=== PATIENT | female | born 1955 | race Caucasian/White ===

== ENCOUNTER 2017-09-16 13:00 | Emergency (ER) | payer BC, SELFPAY ==
[2017-09-16 13:12] VITALS: BP 205/90; PULSE 79; RESP 18; TEMP 36.8; O2SAT 98; BMI 25.7
--- NOTE | 2017-09-16 14:12 | DI.RAD.S_ITS ---
PROCEDURE: XR FOREARM RT 2V INDICATIONS: swelling TECHNIQUE: 2 views of the forearm were acquired. COMPARISON: None. FINDINGS: Bones: No fractures or dislocations. No suspicious bony lesions. Soft tissues: No suspicious soft tissue calcifications or masses. IMPRESSION: Source of swelling is not seen. Dictated by: Uriel Aparicio M.D. on 09/16/2017 at 14:46 Approved by: Uriel Aparicio M.D. on 09/16/2017 at 14:47
[2017-09-16 17:10] VITALS: BP 172/75; PULSE 78; RESP 16; O2SAT 98
--- NOTE | 2017-09-16 18:19 | PC.NURSE ---
right forearm with a bruise since 1229 today. denies any trauma. good rom. excellent pulses. denies numbness or tingling.
--- NOTE | 2017-09-16 18:22 | DI.US.S_ITS ---
PROCEDURE: US PERIPH VENOUS UP EXTREM RT INDICATIONS: pain, swelling TECHNIQUE: Real-time imaging, as well as color and pulse Doppler interrogation, was performed of the right upper extremity deep veins from the inferior neck to the antecubital fossa. COMPARISON: None. FINDINGS: The internal jugular vein, visualized portions of the subclavian vein, axillary, and brachial veins are free of intraluminal thrombus. Where physically possible, the veins are normally compressible. Color and pulse Doppler demonstrate normal intraluminal flow, with expected phasicity and pulsatility. Additional scanning of the cephalic and basilic veins of the superficial system demonstrate normal compressibility, without thrombus. IMPRESSION: No visualized deep venous thrombosis. Dictated by: Lucille Wright M.D. on 09/16/2017 at 20:28 Approved by: Lucille Wright M.D. on 09/16/2017 at 20:28
[2017-09-16 19:31] VITALS: BP 178/73; PULSE 67; RESP 16; TEMP 36.4; O2SAT 97
--- NOTE | 2017-09-17 03:58 | ED_ITS ---
HPI - Extremity Problem General Chief complaint: Extremity Problem,Nontraumatic Stated complaint: BLOOD CLOT RIGHT ARM Time Seen by Provider: 09/16/17 18:15 Source: patient and family Mode of arrival: ambulatory Limitations: no limitations History of Present Illness HPI Narrative: Patient presents to the emergency department with her in the chief complaint of a painful purple bump on her right forearm in the absence of any injury. She was told it was a blood clot and wanted to be evaluated as such. She denies any history of clotting disorders or prior clots. She denies any recent long distance travel. She denies fever or chills. She denies any chest pain or shortness of breath. MD Complaint: extremity pain Onset (ago): hour(s) Pain Consistency: constant Location: right Radiation: none Relieving factors: nothing Exacerbating factors: nothing Associated symptoms: denies other symptoms Related Data Allergies Allergy/AdvReac Type Severity Reaction Status Date / Time promethazine [From Phenergan] Allergy Vomiting Verified 09/16/17 13:22 Sulfa (Sulfonamide Allergy Vomiting Verified 09/16/17 13:22 Antibiotics) Review of Systems Review of Systems All systems reviewed & are unremarkable except as noted in HPI and below Constitutional Denies chills, Denies fever(s), Denies lethargy and Denies weakness Eyes Denies change in vision, Denies eye discharge, Denies irritation and Denies loss of vision ENT Ears, Nose, Mouth, and Throat: Denies change in voice, Denies neck pain and Denies sore throat Cardiovascular Denies chest pain, Denies irregular heart rhythm, Denies lightheadedness, Denies palpitations, Denies dyspnea, Denies dyspnea on exertion and Denies orthopnea Respiratory Denies cough, Denies dyspnea, Denies dyspnea on exertion and Denies wheezing Gastrointestinal Gastrointestinal: Denies abdominal pain, Denies change in bowel habits, Denies diarrhea, Denies nausea and Denies vomiting Genitourinary Denies hematuria, Denies flank pain, Denies urinary incontinence and Denies urinary urgency Musculoskeletal Reports joint swelling and Denies neck pain Integumentary/Breasts Denies pruritus, Denies erythema, Denies rash, Reports skin pain, Reports skin swelling and Denies wounds Neurologic Denies confusion, Denies loss of vision and Denies weakness Psychiatric Denies anxiety, Denies confusion, Denies depression, Denies homicidal ideation and Denies suicidal ideation Endocrine Denies palpitations Hematologic/Lymphatic Denies easy bruising Allergic/Immunologic Denies wheezing Exam Narrative Exam Narrative: 61-year-old female in no obvious distress, resting, reading her book Initial Vital Signs Initial Vital Signs: Vital Signs Temperature 98.2 F 09/16/17 13:12 Pulse Rate 79 09/16/17 13:12 Respiratory Rate 18 09/16/17 13:12 Blood Pressure 205/90 H 09/16/17 13:12 Pulse Oximetry 98 09/16/17 13:12 Const General: cooperative and well developed Nutritional Appearance: well nourished Orientation: alert, awake, oriented x3 and not confused Resp Effort & Inspection: normal respiratory effort, able to speak in complete sentences, no respiratory distress and no use of accessory muscles Auscultation: clear to auscultation bilaterally, no rales, no rhonchi and no wheezes GI Inspection: non-distended Palpation: soft, no hepatosplenomegaly, No guarding, No pulsatile mass and No tender Auscultation: normal bowel sounds Back/Spine/Pelvis Back: No CVA tenderness Cervical Spine: cervical ROM normal and No pain with cervical ROM Thoracic/Lumbar Spine: thoracic and lumbar spine normal to inspection Skin General: ecchymosis and warm Extrem Right upper extremity: elbow/forearm (2 x 2 cm area of induration and ecchymosis on right forearm without fluctuance or any red streaks) Course Orders Ordered: ED Orders 09/16/17 14:12 XR forearm RT 2V Stat Vital Signs - 8 hr 09/16/17 13:12 09/16/17 17:10 Temperature 98.2 F Pulse Rate 79 78 Respiratory Rate 18 16 Blood Pressure 205/90 H Blood Pressure [Left Arm] 172/75 H Pulse Oximetry 98 98 MDM - Extremity (Nontraumatic) Imaging Data Forearm Xray: Radiologist's impression: PROCEDURE: XR FOREARM RT 2V INDICATIONS: swelling TECHNIQUE: 2 views of the forearm were acquired. COMPARISON: None. FINDINGS: Bones: No fractures or dislocations. No suspicious bony lesions. Soft tissues: No suspicious soft tissue calcifications or masses. IMPRESSION: Source of swelling is not seen. Dictated by: Uriel Aparicio M.D. on 09/16/2017 at 14:46 Approved by: Uriel Aparicio M.D. on 09/16/2017 at 14:47 US Extremity: Radiologist's impression: PROCEDURE: US PERIPH VENOUS UP EXTREM RT INDICATIONS: pain, swelling TECHNIQUE: Real-time imaging, as well as color and pulse Doppler interrogation, was performed of the right upper extremity deep veins from the inferior neck to the antecubital fossa. COMPARISON: None. FINDINGS: The internal jugular vein, visualized portions of the subclavian vein , axillary, and brachial veins are free of intraluminal thrombus. Where physically possible, the veins are normally compressible. Color and pulse Doppler demonstrate normal intraluminal flow, with expected phasicity and pulsatility. Additional scanning of the cephalic and basilic veins of the superficial system demonstrate normal compressibility, without thrombus. IMPRESSION: No visualized deep venous thrombosis. Dictated by: Lucille Wright M.D. on 09/16/2017 at 20:28 Approved by: Lucille Wright M.D. on 09/16/2017 at 20:28 Discharge Plan Departure Patient Disposition: Home, Self-Care Clinical Impression: Hematoma Discharge Date/Time: 09/16/17 19:48 Interventions: ED Discharge Assessment Last Done: 09/16/17 19:48 Instructions: DI for Hematoma (Bruise) Activity Restrictions/Additional Instructions: *You have been diagnosed with [ hematoma right forearm ] *What to do: *Take medications as directed such as Tylenol or Motrin for pain *Follow up with your primary care provider in 2-3 days, call for an appointment. Let them know you were seen in the Emergency Department and that we ask that you be seen in follow up *Return to ER if you should have any new, worsening or concerning symptoms , such as [ increasing swelling, pain, redness or fever greater than 101 F]
== END 2017-09-16 19:48 | disposition home or self-care (01) ==
PROVIDERS: Emergency Provider Emergency Medicine
DX: S50.11XA Contusion of right forearm, initial encounter (principal)
CPT/HCPCS: 73090; 93971; 99283; 99284